=== PATIENT | male | born 1950 | race Asian ===

== ENCOUNTER 2018-12-31 16:18 | Observation (INO) | payer OTHER ==
[2018-12-31] MEDS ORDERED: ASPIRIN 325 MG TAB PO ONE (16:31)
[2018-12-31] MEDS ORDERED: ASPIRIN 81 MG CHEWABLE TAB PO ONE (16:35)
[2018-12-31] MEDS ORDERED: NS 500 ML IV ONE (16:35)
--- NOTE | 2018-12-31 16:37 | EDPHY ---
H & P Stated Complaint: cp Time Seen by Provider: 12/31/18 16:31 HPI/ROS: CHIEF COMPLAINT: Chest tightness HISTORY OF PRESENT ILLNESS: The patient is a 68-year-old nepali man who comes to the emergency department complaining of chest tightness. This began about an hour ago. Also some tingling in his left hand and lightheadedness. He denies history of cardiac disease. He was at rest when the pain began. No nausea vomiting. No shortness of breath. No focal weakness. Severity: Moderate Modifying factors: None REVIEW OF SYSTEMS: Constitutional: denies: chills, fever, recent illness, recent injury EENTM: denies: blurred vision, double vision, nose congestion Respiratory: denies: cough, shortness of breath Cardiac: denies: chest pain, irregular heart rate, lightheadedness, palpitations Gastrointestinal/Abdominal: denies: abdominal pain, diarrhea, nausea, vomiting, blood streaked stools Genitourinary: denies: dysuria, frequency, hematuria, pain Musculoskeletal: denies: joint pain, muscle pain Skin: denies: lesions, rash, jaundice, bruising Neurological: denies: headache, numbness, paresthesia, tingling, dizziness, weakness Hematologic/Lymphatic: denies: blood clots, easy bleeding, easy bruising Immunologic/allergic: denies: HIV/AIDS, transplant 10 systems reviewed and negative except as noted EXAM: GENERAL: Well-appearing, well-nourished and in no acute distress. HEAD: Atraumatic, normocephalic. EYES: Pupils equal round and reactive to light, extraocular movements intact, sclera anicteric, conjunctiva are normal. ENT: TMs normal, nares patent, oropharynx clear without exudates. Moist mucous membranes. NECK: Normal range of motion, supple without lymphadenopathy or JVD. LUNGS: Breath sounds clear to auscultation bilaterally and equal. No wheezes rales or rhonchi. HEART: Regular rate and rhythm without murmurs, rubs or gallops. ABDOMEN: Soft, nontender, normoactive bowel sounds. No guarding, no rebound. No masses appreciated. BACK: No CVA tenderness, no spinal tenderness, step-offs or deformities EXTREMITIES: Normal range of motion, no pitting or edema. No clubbing or cyanosis. NEUROLOGICAL: Cranial nerves II through XII grossly intact. Normal speech, normal gait. 5/5 strength, normal movement in all extremities, normal sensation , normal reflexes PSYCH: Normal mood, normal affect. SKIN: Warm, dry, normal turgor, no visible rashes or lesions. Source: Patient Exam Limitations: No limitations - Personal History Current Tetanus Diphtheria and Acellular Pertussis (TDAP): Yes - Medical/Surgical History Hx Asthma: No Hx Chronic Respiratory Disease: No Hx Diabetes: No Hx Cardiac Disease: No Hx Renal Disease: No Hx Cirrhosis: No Hx Alcoholism: No Hx HIV/AIDS: No Hx Splenectomy or Spleen Trauma: No Other PMH: denies - Family History Significant Family History: No pertinent family hx - Social History Smoking Status: Never smoked Alcohol Use: None Constitutional: Initial Vital Signs O2 Sat (%) 95 12/31/18 16:20 O2 Delivery Mode Room Air O2 (L/minute) 2 Allergies/Adverse Reactions: No Known Allergies Allergy (Unverified 12/31/18 16:21) Home Medications: Medication Instructions Recorded Herbals/Supplements -Info Only 1 ea PO DAILY 12/31/18 Medical Decision Making - Diagnostics EKG Interpretation: An EKG obtained and was read and documented in trace view. Please see trace view for full reading and report. Sinus rhythm less than [address]-elevation in anterior leads, no reciprocal changes. A repeat EKG obtained and was read and documented in trace view. Please see trace view for full reading and report. Similar to previous, ST-elevation less than 1 mm in lead V2 and possibly V3. Unchanged from previous A repeat EKG obtained and was read and documented in trace view. Please see trace view for full reading and report. Similar to previous EKG, less than [address] elevation. Imaging Results: Imaging Impressions Chest X-Ray 12/31/18 16:33 Impression: Clear lungs. Negative portable chest. Imaging: Discussed imaging studies w/ cadastral surveyor Radiologist ED Course/Re-evaluation: After 3 doses of nitroglycerin and aspirin the patient's pain has not resolved. Will add morphine. Have spoke with the hospitalist about admission. Have paged Cardiology. He has persistently minimally elevated ST-elevation that does not meet criteria for cardiac alert. 5:20 p.m. I spoke with Dr. Ambrosio Barillas who will consult. Differential Diagnosis: Partial list of the Differential diagnosis considered include but were not limited to; acute coronary disease, arrhythmia, anxiety and although unlikely based on the history and physical exam, I also considered PE, pneumonia, dissection. - Data Points Laboratory Results: Laboratory Results 12/31/18 16:35 12/31/18 16:35 12/31/18 12/31/18 12/31/18 16:39 16:35 16:35 WBC RBC Hgb Hct MCV MCH MCHC RDW Plt Count MPV Neut % (Auto) Lymph % (Auto) [place] % (Auto) Eos % (Auto) Baso % (Auto) Nucleat RBC Rel Count Absolute Neuts (auto) Absolute Lymphs (auto) Absolute Monos (auto) Absolute Eos (auto) Absolute Basos (auto) Absolute Nucleated RBC Immature Gran % Immature Gran # PT 13.3 SEC SEC (12.0-15.0) INR 0.99 (0.83-1.16) APTT 33.1 SEC SEC (23.0-38.0) D-Dimer 0.35 ug/mLFEU ug/mLFEU (0.00-0.50) Sodium 136 mEq/L mEq/L (135-145) Potassium 4.1 mEq/L mEq/L (3.5-5.2) Chloride 107 mEq/L mEq/L (97-110) Carbon Dioxide 23 mEq/l mEq/l (22-31) Anion Gap 6 mEq/L mEq/L (6-14) BUN 25 mg/dL H mg/dL (7-23) Creatinine 0.8 mg/dL mg/dL (0.7-1.3) Estimated GFR > 60 Glucose 102 mg/dL H mg/dL (70-100) Calcium 8.6 mg/dL mg/dL (8.5-10.4) Total Bilirubin 0.4 mg/dL mg/dL (0.1-1.4) Conjugated Bilirubin 0.1 mg/dL mg/dL (0.0-0.5) Unconjugated Bilirubin 0.3 mg/dL mg/dL (0.0-1.1) AST 20 IU/L IU/L (17-59) ALT 25 IU/L IU/L (21-72) Alkaline Phosphatase 50 IU/L IU/L (38-126) POC Troponin I 0.00 ng/mL ng/mL (0.00-0.08) Total Protein 6.6 g/dL g/dL (6.3-8.2) Albumin 3.7 g/dL g/dL (3.5-5.0) Lipase 175 IU/L IU/L (23-300) 12/31/18 16:35 WBC 6.99 10^3/uL 10^3/uL (3.80-9.50) RBC 4.82 10^6/uL 10^6/uL (4.40-6.38) Hgb 14.7 g/dL g/dL (13.7-17.5) Hct 43.1 % % (40.0-51.0) MCV 89.4 fL fL (81.5-99.8) MCH 30.5 pg pg (27.9-34.1) MCHC 34.1 g/dL g/dL (32.4-36.7) RDW 12.5 % % (11.5-15.2) Plt Count 274 10^3/uL 10^3/uL (150-400) MPV 9.8 fL fL (8.7-11.7) Neut % (Auto) 49.4 % % (39.3-74.2) Lymph % (Auto) 32.3 % % (15.0-45.0) [place] % (Auto) 11.7 % % (4.5-13.0) Eos % (Auto) 5.7 % % (0.6-7.6) Baso % (Auto) 0.6 % % (0.3-1.7) Nucleat RBC Rel Count 0.0 % % (0.0-0.2) Absolute Neuts (auto) 3.45 10^3/uL 10^3/uL (1.70-6.50) Absolute Lymphs (auto) 2.26 10^3/uL 10^3/uL (1.00-3.00) Absolute Monos (auto) 0.82 10^3/uL H 10^3/uL (0.30-0.80) Absolute Eos (auto) 0.40 10^3/uL 10^3/uL (0.03-0.40) Absolute Basos (auto) 0.04 10^3/uL 10^3/uL (0.02-0.10) Absolute Nucleated RBC 0.00 10^3/uL 10^3/uL (0-0.01) Immature Gran % 0.3 % % (0.0-1.1) Immature Gran # 0.02 10^3/uL 10^3/uL (0.00-0.10) PT INR APTT D-Dimer Sodium Potassium Chloride Carbon Dioxide Anion Gap BUN Creatinine Estimated GFR Glucose Calcium Total Bilirubin Conjugated Bilirubin Unconjugated Bilirubin AST ALT Alkaline Phosphatase POC Troponin I Total Protein Albumin Lipase Medications Given: Discontinued Medications Aspirin (Aspirin) 325 mg PO EDNOW ONE Stop: 12/31/18 16:32 Last Admin: 12/31/18 16:50 Dose: Not Given Aspirin (Aspirin) 324 mg PO EDNOW ONE Stop: 12/31/18 16:36 Last Admin: 12/31/18 16:43 Dose: 324 mg Sodium Chloride (Ns) 500 mls @ 0 mls/hr IV EDNOW ONE; Wide Open PRN Reason: Protocol Stop: 12/31/18 16:36 Last Admin: 12/31/18 16:43 Dose: 500 mls Morphine Sulfate (Morphine) 4 mg IVP EDNOW ONE Stop: 12/31/18 17:22 Last Admin: 12/31/18 17:22 Dose: 4 mg Nitroglycerin (Nitrostat) 0.4 mg SL Q5M PRN PRN Reason: Chest Pain Last Admin: 12/31/18 17:15 Dose: 0.4 mg Point of Care Test Results: Chemistry 12/31/18 16:39 POC Troponin I 0.00 ng/mL ng/mL (0.00-0.08) Departure - Departure Disposition: [facility] Inpatient Acute Clinical Impression: Chest pain Qualifiers: Chest pain type: unspecified Qualified Code(s): R07.9 - Chest pain, unspecified Condition: Fair
[2018-12-31] MEDS: NITROGLYCERIN 0.4 MG BTL SL PRN ×3 (16:42→17:15)
--- NOTE | 2018-12-31 16:43 | CPEKG ---
Test Reason : OPEN Blood Pressure : / mmHG Vent. Rate : 062 BPM Atrial Rate : 062 BPM P-R Int : 152 ms QRS Dur : 107 ms QT Int : 419 ms P-R-T Axes : 056 017 055 degrees QTc Int : 426 ms Sinus rhythm Minimal ST elevation, anterior leads Confirmed by Ayaan Quiroz ([id number]) on 12/31/2018 4:43:23 PM Referred By: PHYSICIAN ED Confirmed By:Ayaan Quiroz
--- NOTE | 2018-12-31 17:06 | CPEKG ---
Test Reason : OPEN Blood Pressure : / mmHG Vent. Rate : 067 BPM Atrial Rate : 066 BPM P-R Int : 159 ms QRS Dur : 106 ms QT Int : 419 ms P-R-T Axes : 045 000 052 degrees QTc Int : 443 ms Sinus rhythm Minimal ST elevation, anterior leads Confirmed by Wade Siddiqui ([id number]) on 12/31/2018 5:06:04 PM Referred By: WADE SIDDIQUI Confirmed By:Wade Siddiqui
[2018-12-31 17:09] LABS: PLATELET COUNT 274 10^3/uL (150-400)
[2018-12-31 17:26] LABS: INR 0.99 (0.83-1.16); PROTIME(PATIENT) 13.3 SEC (12.0-15.0)
[2018-12-31] MEDS ORDERED: NITROGLYCERIN 0.4 MG BTL SL PRN (17:56)
[2018-12-31] MEDS ORDERED: ACETAMINOPHEN 325 MG TAB PO PRN (17:56)
[2018-12-31] MEDS ORDERED: ONDANSETRON 4 MG/2 ML VIAL IVP PRN (17:56)
[2018-12-31] MEDS ORDERED: ONDANSETRON DISINTEGRATING 4 MG TAB PO PRN (17:56)
--- NOTE | 2018-12-31 18:23 | PDGENHP ---
History and Physical - Chief Complaint chest pain - History of Present Illness 68 yo M with very minimal PMH, originally from [place], presenting with complaints of 3.5 hours of substernal chest pain and tightness. Patient is accompanied by his son and much of the history is obtained from son as patient states he is tired and does not wish to talk much--he did receive morphine prior to my evaluation. Apparently patient was not doing anything in particular and was at rest when symptoms began, he noticed substernal chest pain and also had some numbness in two of his fingers. His son who is present is very emotional and concerned that something is seriously wrong with his father because it is very unusual for him to complain of pain. Patient reportedly is very active and does not generally have pain or other issues. Pain was still present in the ER but has abated significantly now after getting morphine. History Information - Allergies/Home Medication List Allergies/Adverse Reactions: No Known Allergies Allergy (Unverified 12/31/18 16:21) Home Medications: Herbals/Supplements -Info Only 1 ea PO DAILY 12/31/18 [Last Taken Unknown] I have personally reviewed and updated: family history, medical history, social history, surgical history - Past Medical History hyperlipidemia Additional medical history: kidney stones. 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 - Surgical History Reports: no pertinent surgical hx - Family History Negative for: CAD - Social History Smoking Status: Never smoked Alcohol Use: None Drug Use: None Additional social history: patient is active, works out frequently Review of Systems Review of Systems: ROS: 10pt was reviewed & negative except for what was stated in HPI & below Physical Exam Physical Exam: Temp Pulse Resp BP Pulse Ox 36.4 C 60 19 136/80 H 98 12/31/18 16:21 12/31/18 17:42 12/31/18 17:42 12/31/18 17:42 12/31/18 17:42 Constitutional: no apparent distress, appears nourished Eyes: PERRL Ears, Nose, Mouth, Throat: moist mucous membranes Cardiovascular: regular rate and rhythym, no murmur, rub, or gallop, No edema Respiratory: no respiratory distress, no rales or rhonchi, clear to auscultation Gastrointestinal: normoactive bowel sounds, soft, non-tender abdomen Genitourinary: no bladder tenderness Skin: warm, normal color Musculoskeletal: no muscle tenderness, No asymmetric calves Neurologic: AAOx3 Psychiatric: not anxious, not encephalopathic, other (somnolent) Lab Data & Imaging Review 12/31/18 16:35 12/31/18 16:35 WBC 6.99 10^3/uL (3.80-9.50) 12/31/18 16:35 RBC 4.82 10^6/uL (4.40-6.38) 12/31/18 16:35 Hgb 14.7 g/dL (13.7-17.5) 12/31/18 16:35 Hct 43.1 % (40.0-51.0) 12/31/18 16:35 MCV 89.4 fL (81.5-99.8) 12/31/18 16:35 MCH 30.5 pg (27.9-34.1) 12/31/18 16:35 MCHC 34.1 g/dL (32.4-36.7) 12/31/18 16:35 RDW 12.5 % (11.5-15.2) 12/31/18 16:35 Plt Count 274 10^3/uL (150-400) 12/31/18 16:35 MPV 9.8 fL (8.7-11.7) 12/31/18 16:35 Neut % (Auto) 49.4 % (39.3-74.2) 12/31/18 16:35 Lymph % (Auto) 32.3 % (15.0-45.0) 12/31/18 16:35 [place] % (Auto) 11.7 % (4.5-13.0) 12/31/18 16:35 Eos % (Auto) 5.7 % (0.6-7.6) 12/31/18 16:35 Baso % (Auto) 0.6 % (0.3-1.7) 12/31/18 16:35 Nucleat RBC Rel Count 0.0 % (0.0-0.2) 12/31/18 16:35 Absolute Neuts (auto) 3.45 10^3/uL (1.70-6.50) 12/31/18 16:35 Absolute Lymphs (auto) 2.26 10^3/uL (1.00-3.00) 12/31/18 16:35 Absolute Monos (auto) 0.82 10^3/uL (0.30-0.80) H 12/31/18 16:35 Absolute Eos (auto) 0.40 10^3/uL (0.03-0.40) 12/31/18 16:35 Absolute Basos (auto) 0.04 10^3/uL (0.02-0.10) 12/31/18 16:35 Absolute Nucleated RBC 0.00 10^3/uL (0-0.01) 12/31/18 16:35 Immature Gran % 0.3 % (0.0-1.1) 12/31/18 16:35 Immature Gran # 0.02 10^3/uL (0.00-0.10) 12/31/18 16:35 PT 13.3 SEC (12.0-15.0) 12/31/18 16:35 INR 0.99 (0.83-1.16) 12/31/18 16:35 APTT 33.1 SEC (23.0-38.0) 12/31/18 16:35 D-Dimer 0.35 ug/mLFEU (0.00-0.50) 12/31/18 16:35 Sodium 136 mEq/L (135-145) 12/31/18 16:35 Potassium 4.1 mEq/L (3.5-5.2) 12/31/18 16:35 Chloride 107 mEq/L (97-110) 12/31/18 16:35 Carbon Dioxide 23 mEq/l (22-31) 12/31/18 16:35 Anion Gap 6 mEq/L (6-14) 12/31/18 16:35 BUN 25 mg/dL (7-23) H 12/31/18 16:35 Creatinine 0.8 mg/dL (0.7-1.3) 12/31/18 16:35 Estimated GFR > 60 12/31/18 16:35 Glucose 102 mg/dL (70-100) H 12/31/18 16:35 Calcium 8.6 mg/dL (8.5-10.4) 12/31/18 16:35 Total Bilirubin 0.4 mg/dL (0.1-1.4) 12/31/18 16:35 Conjugated Bilirubin 0.1 mg/dL (0.0-0.5) 12/31/18 16:35 Unconjugated Bilirubin 0.3 mg/dL (0.0-1.1) 12/31/18 16:35 AST 20 IU/L (17-59) 12/31/18 16:35 ALT 25 IU/L (21-72) 12/31/18 16:35 Alkaline Phosphatase 50 IU/L (38-126) 12/31/18 16:35 POC Troponin I 0.00 ng/mL (0.00-0.08) 12/31/18 16:39 Total Protein 6.6 g/dL (6.3-8.2) 12/31/18 16:35 Albumin 3.7 g/dL (3.5-5.0) 12/31/18 16:35 Lipase 175 IU/L (23-300) 12/31/18 16:35 Visualized and Interpreted Chest x-ray results: Yes Chest X-Ray results: no infiltrate Visualized and Interpreted EKG results: Yes EKG Interpretation: Positive for: ST elevation (less than 1mm ST elevation in i9a4--xkwtnaskn over 3 ecg) Assessment & Plan Assessment: Chest pain (Acute) 68 yo M with no significant PMH presenting with c/o chest pain and abnormal ecg # chest pain: with some typical and atypical features,only cardiac risk factor being mild HLD and heart score of 5. ECG with some minimal st elevation but no dynamic changes and not diagnostic, cardiology consulted. Plan for monitoring overnight on tele, serial trops and ecg overnight. So long as w/u remains negative and patient is chest pain free likely reasonable to proceed with stress test in am, with nuc med given abnormal ecg at baseline. # HLD: has not had recent lipid panel, will check in am # hx of kidney stone: no active issues # hx of childhood TB: s/p treatment, chest xray unremarkable # observation status Patient new to my care. Old records reviewed and summarized as above. Care plan reviewed with ER doctor, much of history obtained from patients son present at bedside.
[2019-01-01] MEDS ORDERED: ASPIRIN 325 MG TAB PO SCH (09:00)
--- NOTE | 2019-01-01 10:19 | GCON ---
[f rep st] CONSULTATION CARDIAC CONSULTATION REASON: Chest pain. HISTORY OF PRESENT ILLNESS: This is a 68-year-old Pashto gentleman who is here with his son who is aleena nterpreting. He apparently has been living in [place] for some time without any recent travel. He apparently is an active gentleman who has no known history of coronary disease or significant risk fa ctors. He was a remote smoker. Apparently yesterday he was lying down and had some substernal chest pressure and tightness, an 8/10. It lasted for approximately 3-1/2 hours. He presents to [facility] Emergency Room where it was relieved with morphine. His EKG showed no significant EK G changes on 3 subsequent EKGs. His troponins have been negative x2. His BNPs are normal as well. He had a normal D-dimer. He does have some calf tightness for the past 2 or 3 years at times when he walks, but nothing new. No fever, chills, nausea, vomiting. He denies any GI GERD symptoms. He bass s had no trauma or any skin lesions. He was admitted overnight. He is pain-free at this time. Looking at his labs, all labs are normal. He is in normal rhythm. On exam today, he has had normal rhythm without murmur, gallops, rubs. He will be scheduled for a nucl ear stress test for further evaluation. ALLERGIES: No known allergies. MEDICATIONS: Herbal supplements only. FAMILY HISTORY: Negative for any cardiovascular disease. SOCIAL HISTORY: Smoking, apparently he smoked, but quit over 10 years ago. No alcohol abuse. No ot her illegal drugs. REVIEW OF SYSTEMS: Ten-point system is negative for fever, chills, nausea, vomiting, GI, , neuromu scular, neurologic, or other conditions. LABORATORY/IMAGING: Labs are all normal with negative troponins, BNP, with a cholesterol 154 with an LDL of 91. He had a chest x-ray showed normal its normal findings, except for healed clavicle and rib fractures. EXAM: VITAL SIGNS: Blood pressure is 130/80, heart rates in the 50s, sinus rhythm. GENERAL: A mid dle-aged male in no acute distress. Mouth and oropharynx are moist. LUNGS: Clear. BACK: CVA and chest wall without palpable tenderness. CARDIOVASCULAR: Regular rate and rhythm without murmurs, ga llops, rubs. ABDOMEN: Soft, nontender. MUSCULOSKELETAL: Without cyanosis, clubbing, or edema. Pu lses are 2+ and symmetrical. ASSESSMENT/PLAN: Chest pain. Patient had a prolonged episode of substernal chest pain with relief w ith morphine who has had normal troponins and D-dimers. Patient has no clear other symptoms suggesti ve of trauma, gastroesophageal reflux disease, or pulmonary emboli. D-dimer is normal. The patient had normal exam today. His EKG is normal. Plan nuclear stress test for risk stratification at this time. In looking at the chest x-ray, possibly there could be some pain related to his multiple fractures; h owever, he had no palpable pain today on exam. Questions were answered. /[id number]/MODL
--- NOTE | 2019-01-01 10:41 | CPEKG ---
Test Reason : OPEN Blood Pressure : / mmHG Vent. Rate : 051 BPM Atrial Rate : 051 BPM P-R Int : 158 ms QRS Dur : 107 ms QT Int : 460 ms P-R-T Axes : 055 011 042 degrees QTc Int : 424 ms Sinus rhythm ns ivcd Confirmed by mAbrosio Barillas ([id number]) on 01/01/2019 10:40:28 AM Referred By: Samson Frank Confirmed By:Ambrosio Barillas
[2019-01-01] MEDS ORDERED: NS 1,000 ML IV SCH (11:00)
[2019-01-01] MEDS ORDERED: REGADENOSON 0.4 MG/5 ML SYR IVP ONE (11:19)
[2019-01-01 12:38] VITALS: BP 156/84
--- NOTE | 2019-01-01 16:26 | ASMTLACE ---
ARNULFO Length of stay for Answers: 1 day current admission Acuity / Level of Answers: No Care: Did the patient have an inpatient admission? Comorbidities - select Answers: Other Notes: HLD all that apply # of Emergency department Answers: 1-2 visits in the last 6 months Score: 3 Date Signed: 01/01/2019 04:25 PM Electronically Signed By:Victoria Lu RN
--- NOTE | 2019-01-01 16:31 | ASDISCHSUM ---
Discharge Information Plan Status:Home with No Needs Medically Cleared to Leave:12/31/2018 Discharge Date:01/01/2019 02:31 PM CM D/C Disposition:Home, Routine, Self-Care ADT D/C Disposition:Home, Routine, Self-Care Projected Discharge Date:01/01/2019 02:31 PM Transportation at D/C:Family Discharge Delay Reason: Follow-Up Date:01/01/2019 02:31 PM Discharge Slot:2 - 12:01 pm - 18:00 pm Final Diagnosis:Chest pain, HLD Placement Information Patient Contact Information Contact Name:PIEDADCADEN Relationship:Son Address: Work Phone: City: [facility] Phone: State/Zip Code: Email: Financial Information Financial Class:Medicare Advantage Plans Primary Plan Desc:[facility] [employer] PLANS Primary Plan Number:[id number] Secondary Plan Desc: Secondary Plan Number: Assessment Information LACE LACE Length of stay for Answers: 1 day current admission Acuity / Level of Answers: No Care: Did the patient have an inpatient admission? Comorbidities - select Answers: Other Notes: HLD all that apply # of Emergency department Answers: 1-2 visits in the last 6 months Score: 3 Date Signed: 01/01/2019 04:25 PM Electronically Signed By:Victoria Lu RN [facility] Progress Note CM Note CM Note Notes: Reviewed chart, spoke with Dr. Lang regarding discharge plan of care, pt's progress. Pt admitted for chest pain; s/p a stress test. History includes hyperlipidemia, a kidney stone and TB as a child. Pt is and is from [place]. He is accompanied by his son. Per Dr. Lang, pt to discharge home independently with family support and no identified needs today. No IM/MOOM forms signed, pt left prior to signing. Pt to follow up as directed. CM available for any further issues or concerns. Discharge Plan: Home independently with family support Date Signed: 01/01/2019 04:29 PM Electronically Signed By:Victoria Lu RN Intervention Information
--- NOTE | 2019-01-01 18:36 | GDS ---
[f rep st] DISCHARGE SUMMARY DISCHARGE DIAGNOSES: 1. Atypical chest pain, noncardiac. 2. Hyperlipidemia. CONSULTANTS: Dr. Ambrosio Barillas, Cardiology. IMAGING STUDIES/PROCEDURES: Nuclear medicine myocardial perfusion stress test January 01, 2019, show ed mild global hypokinesia with ejection fraction of 51% with no focal wall motion abnormalities and no evidence of ischemia or infarct. HISTORY OF DETAILS: Please insert dictated history and physical dated December 31, 2018. In brief, the patient is a 68-year-old male with history of hyperlipidemia who presented to the emerg ency department with chest pain. He has been hospitalized for further management. HOSPITAL COURSE: The patient was admitted to the progressive care unit given a heart score of 5 for inpatient risk stratification. There was some minimal ST elevation on his EKG, but no dynamic change s. Cardiology was consulted. He had serial troponins which were negative and no dynamic EKG changes . He underwent a nuclear medicine stress test the following morning, which was negative for any evid ence of ischemia. His chest pain completely resolved. He was deemed safe for discharge home with cl ose outpatient followup with his primary care provider. DISPOSITION: Patient discharged home in stable condition. FOLLOWUP: Primary care. DISCHARGE MEDICATIONS: There are no new medications at discharge. He can continue his outpatient me dications as previously prescribed. It looks like he only takes an herbal supplement. /[id number]/MODL
--- NOTE | 2019-01-03 14:51 | CPEKG ---
Test Reason : OPEN Blood Pressure : / mmHG Vent. Rate : 071 BPM Atrial Rate : 071 BPM P-R Int : 158 ms QRS Dur : 106 ms QT Int : 425 ms P-R-T Axes : 055 026 057 degrees QTc Int : 462 ms Sinus rhythm Minimal ST elevation, anterior leads Confirmed by Jason Levy ([id number]) on 01/03/2019 2:51:33 PM Referred By: Samson Frank Confirmed By:Jason Levy
== END 2019-01-01 14:31 | disposition home or self-care (01) ==
LOC: F2W 18:12
PROVIDERS: ADMIT Internal Medicine; ATTEND Hospitalist
DX: R07.9 Chest pain, unspecified (principal); E78.5 Hyperlipidemia, unspecified; E86.9 Volume depletion, unspecified; Z87.442 Personal history of urinary calculi; Z86.11 Personal history of tuberculosis; Z87.891 Personal history of nicotine dependence
CPT/HCPCS: 71045; 78451; 93005; 93017; 96361; 96374; 99285; G0378; 84484-ER; J2785